=== PATIENT | female | born 2000 | race Caucasian/White ===

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

== ENCOUNTER → 2023-11-11 | Emergency (ER) | payer OTHER ==
--- NOTE | 2023-11-11 22:47 | EDPHYS ---
Physician Documentation [facility] Name: Carol Gutierrez Age: 23 yrs Sex: Female : 2000 Arrival Date: 11/11/2023 Time: 22:19 Bed 12 Private MD: ED Physician Bubba Morrison HPI: 11/12 00:34 This 23 yrs old Female presents to ER via Ambulatory with complaints of Foot Pain. sb4 00:34 patient states that she sprained her ankle a few weeks ago. states the pain has sb4 improved but yesterday she noticed a bump on the bottom of her foot that causes her pain if she is on her feet for an extended period of time. denies any redness, firmness, swelling, fevers, discharge. Historical: - Allergies: 11/11 22:37 Advil; rv - PMHx: 22:37 ADD/ADHD; GERD; rv - PSHx: 22:37 None; rv - Immunization history:: Adult Immunizations up to date. - Social history:: Smoking status: Patient denies any tobacco usage or history of. ROS: 11/12 00:34 Constitutional: Negative for fever, chills, and weight loss, sb4 MS/extremity: Positive for pain, of the left foot, All other systems are negative, Exam: 00:34 Constitutional: This is a well developed, well nourished patient who is awake, alert, sb4 and in no acute distress. Head/Face: Normocephalic, atraumatic. Eyes: Extra-ocular motions intact. Periorbital areas with no swelling, redness, or edema. ENT: Mucous membranes moist. Skin: Warm, dry with normal turgor. Normal color with no rashes, no lesions, and no evidence of cellulitis. MS/ Extremity: Pulses equal, no cyanosis. Neurovascular intact. Full, normal range of motion. Neuro: Awake and alert, GCS 15, oriented to person, place, time, and situation. Motor strength 5/5 in all extremities. Sensory grossly intact. Vital Signs: 11/11 22:36 BP 127 / 87; Pulse 79; Resp 17; Temp 98; Pulse Ox 99% ; Weight 102.06 kg; Height 5 ft. rv 0 in. ; 22:36 Body Mass Index 43.94 (102.06 kg, 152.4 cm) rv MDM: 22:39 Patient medically screened. sb4 11/12 00:34 Data reviewed: vital signs, nurses notes, and as a result, I will discharge patient. sb4 Test considered but Not performed: X-ray: not indicated, no shantanu injury. Counseling: I had a detailed discussion with the patient and/or guardian regarding the historical points, exam findings, and any diagnostic results supporting the discharge/admit diagnosis, to return to the emergency department if symptoms worsen or persist or if there are any questions or concerns that arise at home. ED course: i do not appreciate any "bump" or swelling on my examination. full ROM, no crepitus, no signs of abscess or cellulitis. Administered Medications: No medications were administered Disposition: 00:48 Co-signature as Attending Physician, Bubba Morrison MD I reviewed the patient's care rt provided by the Advanced Practice Provider and agree with the diagnosis and treatment plan. Disposition Summary: 11/11/23 22:46 Discharge Ordered Notes: Location: Home sb4 Problem: an ongoing problem sb4 Symptoms: are unchanged sb4 Condition: Stable sb4 Diagnosis - Pain in left foot sb4 Followup: sb4 - With: Private Physician - When: As needed - Reason: Recheck today's complaints, Re-evaluation by your physician Discharge Instructions: - Discharge Summary Sheet sb4 - Foot Pain sb4 Forms: - Thank You Letter sb4 - Patient Portal Instructions sb4 - Leadership Thank You Letter sb4 Signatures: Jhon Corrales, CHANDAN RN Jennifer Helm PA-C PAJhonatanC sb4 Bubba Morrison MD MD rt Corrections: (The following items were deleted from the chart) 11/11 22:38 22:37 Allergies: No Known Allergies; rv rv
--- NOTE | 2023-11-11 22:47 | ER ---
Nurse's Notes [facility] Name: Carol Gutierrez Age: 23 yrs Sex: Female : 2000 Arrival Date: 11/11/2023 Time: 22:19 Bed 12 Private MD: Diagnosis: Pain in left foot Presentation: 11/11 22:36 Chief complaint: Patient states: pt fell two weeks ago hurting the left foot, pain got rv better. today, woke up with a bump in the heel area and pain. Coronavirus screen: At this time, the client does not indicate any symptoms associated with coronavirus-19. Ebola Screen: No symptoms or risks identified at this time. Initial Sepsis Screen: Does the patient meet any 2 criteria? No. Patient's initial sepsis screen is negative. Does the patient have a suspected source of infection? No. Patient's initial sepsis screen is negative. Risk Assessment: Do you want to hurt yourself or someone else? Patient reports no desire to harm self or others. Onset of symptoms was November 11, 2023. 22:36 Method Of Arrival: Ambulatory rv 22:36 Acuity: SERINA 4 rv Triage Assessment: 22:37 General: Appears in no apparent distress. Behavior is calm, cooperative. Pain: rv Complains of pain in left foot. Neuro: Level of Consciousness is awake, alert, obeys commands, Oriented to person, place, time, situation. Cardiovascular: Capillary refill < 3 seconds Patient's skin is warm and dry. Respiratory: Airway is patent Respiratory effort is even, unlabored. GI: No signs and/or symptoms were reported involving the gastrointestinal system. : No signs and/or symptoms were reported regarding the genitourinary system. Derm: Skin is intact. Historical: - Allergies: 22:37 Advil; rv - PMHx: 22:37 ADD/ADHD; GERD; rv - PSHx: 22:37 None; rv - Immunization history:: Adult Immunizations up to date. - Social history:: Smoking status: Patient denies any tobacco usage or history of. Screenin:38 [facility] ED Fall Risk Assessment (Adult) History of falling in the last 3 months, rv including since admission No falls in past 3 months (0 pts) Score/Fall Risk Level 0 - 2 = Low Risk Oriented to surroundings, Maintained a safe environment, Educated pt \T\ family on fall prevention, incl call for assistance when getting out of bed, Assessed \T\ reinforced patient's understanding of fall precautions. Abuse screen: Denies threats or abuse. Denies injuries from another. Nutritional screening: No deficits noted. Tuberculosis screening: No symptoms or risk factors identified. Vital Signs: 22:36 BP 127 / 87; Pulse 79; Resp 17; Temp 98; Pulse Ox 99% ; Weight 102.06 kg; Height 5 ft. rv 0 in. ; 22:36 Body Mass Index 43.94 (102.06 kg, 152.4 cm) rv ED Course: 22:22 Patient arrived in ED. kj1 22:24 Jennifer Calvin PA-C is PHCP. sb4 22:24 Bubba Morrison MD is Attending Physician. sb4 22:37 Triage completed. rv 22:37 Arm band placed on right wrist. rv 22:38 Patient has correct armband on for positive identification. Client placed on continuous rv cardiac and pulse oximetry monitoring. NIBP monitoring applied. 22:49 Provided Education on: follow up. as6 22:49 No provider procedures requiring assistance completed. Patient did not have IV access as6 during this emergency room visit. Administered Medications: No medications were administered Medication: 22:38 VIS not applicable for this client. rv Outcome: 22:46 Discharge ordered by . sb4 22:49 Discharged to home ambulatory, as6 22:49 Condition: stable 22:49 Discharge instructions given to patient, Instructed on discharge instructions, follow up and referral plans. Demonstrated understanding of instructions, follow-up care, 22:50 Patient left the ED. as6 Signatures: Jhon Corrales RN RN rv Chiqui Mohr kj1 Erick Miguel RN RN as6 Jennifer Calvin PA-C PA-C sb4 Corrections: (The following items were deleted from the chart) 22:38 22:37 Allergies: No Known Allergies; rv rv
[2023-11-11 23:31] VITALS: BP 127/87; TEMP 98; O2SAT 99
== END ==
LOC: ER 22:19
DX: M79.672 Pain in left foot (principal); Z88.6 Allergy status to analgesic agent
CPT/HCPCS: 99283

== ENCOUNTER 2024-07-07 23:19 | Emergency (ER) | payer OTHER, SELFPAY ==
[2024-07-08] MEDS ORDERED: DIPHENHYDRAMINE 50 MG/ML VIAL ONE (01:56)
[2024-07-08] MEDS ORDERED: KETOROLAC 30 MG/ML INJ ONE (01:56)
[2024-07-08] MEDS ORDERED: METOCLOPRAMIDE 10 MG/2mL INJ ONE (01:56)
[2024-07-08 02:16] LABS: Absolute Lymphocytes (CBC) 1.4 K/uL (0.7-4.9); Absolute Monocytes 0.5 K/uL (0.1-1.3); Absolute Neutrophil 7.4 K/uL (1.8-8.0); Basophils % 0.5 % (0-1.3); Eosinophils % 0.1 % (0-4.4); Hematocrit 43.6 % (36.0-45.0); Hemoglobin 14.5 g/dL (12.0-15.0); Lymphocytes % 14.6 % (15.3-44.8); MCH 29.5 pg (27.0-35.0); MCHC 33.3 g/dL (32.0-36.0); MCV 88.5 fL (80-100); MPV 8.3 fL (7.6-11.3); Monocytes % 5.5 % (3.3-12.3); Neutrophils % 79.3 % (41.7-73.7); Platelets 313 thou/uL (152-406); RBC Red Blood Cell Count 4.93 M/uL (3.86-4.86)
[2024-07-08 02:18] LABS: PT Prothrombin Time 11.6 SECONDS (9.4-12.5); Protime INR 1.04
[2024-07-08 02:32] LABS: ALT/SGPT 18 U/L (13-56); AST/SGOT 16 U/L (15-37); Albumin 3.8 g/dL (3.4-5.0); Albumin/Globulin Ratio 1.1 (1.1-1.8); Alkaline Phosphatase 79 U/L (45-117); BUN Blood Urea Nitrogen 12 mg/dL (7-18); Bicarbonate 26 mEq/L (21-32); Bilirubin Total 0.3 mg/dL (0.2-1.0); Globulin 3.6 g/dL (2.3-3.5); Glomerular Filtration Rate 122 ml/min (=/>90); Glucose Level 94 mg/dL (74-106); Protein, Total 7.4 g/dL (6.4-8.2); Sodium Level 139 mEq/L (136-145)
[2024-07-08 02:37] LABS: Bilirubin Direct < 0.2 mg/dL (0-0.2); Bilirubin Indirect, Calculated 0.1 mg/dL (0.2-0.8)
--- NOTE | 2024-07-08 03:07 | RAD REPORT ---
CLINICAL HISTORY: Headache, nose bleed. COMPARISON: None. TECHNIQUE: CT HEAD WITHOUT IV CONTRAST on 07/08/2024 1:37 AM CDT This exam was performed according to our departmental dose-optimization program, which includes autom ated exposure control, adjustment of the mA and/or kV according to patient size and/or use of iterative reconstruction technique. FINDINGS: There is no acute hemorrhage, mass effect or midline shift. Lyman-white differentiation is preserved. There is no hydrocephalus. There is no significant volume loss for age. The calvarium is intact. Orbits and globes are unremarkable. The paranasal sinuses are clear. Mastoid air cells are clear. IMPRESSION: No acute intracranial findings. Electronically signed by: Jerad Galindo MD 07/08/2024 03:00 AM CDT RP Due to temporary technical issues with the PACS/Vir2[employer] reporting system, reports are being ladi d by the in-house radiologist without review as a courtesy to ensure prompt reporting the interpreting radiologist is fully responsible for the content of the report. Transcribed Date/Time: 07/08/2024 9:52 PM
--- NOTE | 2024-07-08 03:57 | ER ---
Nurse's Notes [facility] Name: Carol Gutierrez Age: 24 yrs Sex: Female : 2000 Arrival Date: 07/07/2024 Time: 23:19 Bed 16 Private MD: Diagnosis: Epistaxis;Migraine without aura, not intractable Presentation: 07/07 23:42 Chief complaint: Patient states: last night around midnight nose started bleeding. It tm6 bled for about 4 hours. Since then, it has been on and off bleeding. I feel really weak. Coronavirus screen: Client denies travel out of the [place] in the last 14 days. Ebola Screen: Patient negative for fever greater than or equal to 101.5 degrees Fahrenheit, and additional compatible Ebola Virus Disease symptoms Patient denies exposure to infectious person. Patient denies travel to an Ebola-affected area in the 21 days before illness onset. No symptoms or risks identified at this time. Initial Sepsis Screen: Does the patient meet any 2 criteria? No. Patient's initial sepsis screen is negative. Does the patient have a suspected source of infection? No. Patient's initial sepsis screen is negative. Risk Assessment: Do you want to hurt yourself or someone else? Patient reports no desire to harm self or others. Onset of symptoms was July 06, 2024 at 00:00. 23:42 Method Of Arrival: Ambulatory tm6 23:42 Acuity: SERINA 3 tm6 Triage Assessment: 23:43 General: Appears in no apparent distress. Behavior is calm, cooperative. Pain: Denies tm6 pain. EENT: Reports nasal discharge that is bloody since midnight yesterday. Neuro: Level of Consciousness is awake, alert, obeys commands, Oriented to person, place, time, situation. Cardiovascular: Patient's skin is warm and dry. Respiratory: Airway is patent Respiratory effort is even, unlabored, Respiratory pattern is regular, symmetrical. GI: No signs and/or symptoms were reported involving the gastrointestinal system. Abdomen is round. : No signs and/or symptoms were reported regarding the genitourinary system. Derm: No signs and/or symptoms reported regarding the dermatologic system. Musculoskeletal: Reports general weakness. 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 - Infectious Disease History:: Denies. - Social history:: Smoking status: Patient denies any tobacco usage or history of. Patient/guardian denies using alcohol. - Family history:: not pertinent. Screenin/12 00:34 [facility] ED Fall Risk Assessment (Adult) History of falling in the last 3 months, cp4 including since admission No falls in past 3 months (0 pts) Confusion or Disorientation No (0 pts) Intoxicated or Sedated No (0 pts) Impaired Gait No (0 pts) Mobility Assist Device Used No (0 pt) Altered Elimination No (0 pt) Score/Fall Risk Level 0 - 2 = Low Risk Oriented to surroundings, Maintained a safe environment, Assessed \T\ reinforced patient's understanding of fall precautions, Hourly rounding (assess needs \T\ fall precautionary measures) done. Abuse screen: Denies threats or abuse. Nutritional screening: No deficits noted. Tuberculosis screening: No symptoms or risk factors identified. Assessment: 00:34 General: Appears in no apparent distress. comfortable, Behavior is calm, cooperative, cp4 appropriate for age. Pain: Denies pain. Neuro: Level of Consciousness is awake, alert, obeys commands, Oriented to person, place, time, situation. Cardiovascular: Patient's skin is warm and dry. Respiratory: Airway is patent Respiratory effort is even, unlabored. GI: No signs and/or symptoms were reported involving the gastrointestinal system. : No signs and/or symptoms were reported regarding the genitourinary system. EENT: Reports nose bleed. Currently not bleeding.. Derm: No signs and/or symptoms reported regarding the dermatologic system. Musculoskeletal: No signs and/or symptoms reported regarding the musculoskeletal system. 01:30 Reassessment: Patient appears in no apparent distress at this time. Patient and/or cp4 family updated on plan of care and expected duration. Pain level reassessed. Patient is alert, oriented x 3, equal unlabored respirations, skin warm/dry/pink. 02:30 Reassessment: Patient appears in no apparent distress at this time. Patient and/or cp4 family updated on plan of care and expected duration. Pain level reassessed. Patient is alert, oriented x 3, equal unlabored respirations, skin warm/dry/pink. 03:30 Reassessment: Patient appears in no apparent distress at this time. Patient and/or cp4 family updated on plan of care and expected duration. Pain level reassessed. Patient is alert, oriented x 3, equal unlabored respirations, skin warm/dry/pink. Vital Signs: 07/07 23:41 BP 123 / 90; Pulse 95; Resp 18; Temp 98.8(TE); Pulse Ox 100% on R/A; MAP 100 mmHg; tm6 Weight 102.06 kg; Height 5 ft. 0 in. ; Pain 0/10; 07/08 01:00 BP 134 / 68; Pulse 99; Resp 18; Pulse Ox 100% ; cp4 02:00 BP 111 / 59; Pulse 101; Resp 18; Pulse Ox 100% ; cp4 04:03 BP 124 / 64; Pulse 96; Resp 18; Pulse Ox 100% ; cp4 07/07 23:41 Body Mass Index 43.94 (102.06 kg, 152.4 cm) tm6 07/07 23:41 Pain Scale: Adult tm6 [place] Coma Score: 06:58 Eye Response: spontaneous(4). Motor Response: obeys commands(6). Verbal Response: sp4 oriented(5). Total: 15. ED Course: 07/07 23:20 Patient arrived in ED. jj6 23:38 Alexi Guerra MD is Attending Physician. sp4 23:43 Triage completed. tm6 23:43 Arm band placed on right wrist. tm6 07/08 00:30 Colleen Puri is Primary Nurse. cp4 00:34 Bed in low position. Call light in reach. Side rails up X 1. Provided Education on: cp4 nose bleed. 00:34 No provider procedures requiring assistance completed. cp4 02:01 Initial lab(s) drawn, by me, sent to lab. Inserted saline lock: 22 gauge in left cp4 antecubital area, using aseptic technique. Blood collected. Flushed with 10 mL NS. 02:33 CT Head Brain wo Cont In Process Unspecified. EDMS 02:33 CT Facial Bones W/O Con In Process Unspecified. EDMS 04:04 intact, bleeding controlled, No redness/swelling at site. Pressure dressing applied. cp4 Administered Medications: 02:00 Drug: metoCLOPramide IVP 10 mg IVP once; over 1 to 2 minutes Route: IVP; Site: left cp4 antecubital; 02:36 Follow up: Response: No adverse reaction cp4 02:00 Drug: diphenhydrAMINE IVP 25 mg IVP once Route: IVP; Site: left antecubital; cp4 02:36 Follow up: Response: No adverse reaction cp4 02:36 Drug: Ketorolac IVP 30 mg IVP once Route: IVP; Site: left antecubital; cp4 03:00 Follow up: Response: No adverse reaction; Pain is decreased cp4 Medication: 00:34 VIS not applicable for this client. cp4 Outcome: 03:56 Discharge ordered by . sp4 04:04 Discharged to home ambulatory, cp4 04:04 Condition: stable 04:04 Discharge instructions given to patient, Instructed on discharge instructions, follow up and referral plans. Demonstrated understanding of instructions, follow-up care, 04:05 Patient left the ED. cp4 Signatures: Dispatcher [employer] EDBarbie [email or web address] Alexi Guerra MD MD sp4 Colleen Puri cp4 Misael Toney RN RN tm6
--- NOTE | 2024-07-08 03:57 | EDPHYS ---
Physician Documentation [facility] Name: Carol Gutierrez Age: 24 yrs Sex: Female : 2000 Arrival Date: 07/07/2024 Time: 23:19 Bed 16 Private MD: ED Physician Alexi Guerra HPI: 07/07 23:38 This 24 yrs old Female presents to ER via Unassigned with complaints of Nose sp4 Bleed. 07/08 06:58 24-year-old female presents with complaint of the left-sided epistaxis. . 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 - Infectious Disease History:: Denies. - Social history:: Smoking status: Patient denies any tobacco usage or history of. Patient/guardian denies using alcohol. - Family history:: not pertinent. ROS: 07/08 06:58 Constitutional: Negative for fever, chills, and weight loss, positive left-sided sp4 epistaxis and a headache All other systems are negative, Exam: 06:58 Constitutional: This is a well developed, well nourished patient who is awake, alert, sp4 and in no acute distress. Head/Face: Normocephalic, atraumatic. Eyes: Pupils equal round and reactive to light, extra-ocular motions intact. Lids and lashes normal. Conjunctiva and sclera are not injected. Cornea within normal limits. Periorbital areas with no swelling, redness, or edema. ENT: Nares patent. No nasal discharge, no septal abnormalities noted. Tympanic membranes are normal and external auditory canals are clear. Oropharynx with no redness, swelling, or masses, exudates, or evidence of obstruction, uvula midline. Mucous membranes moist. Neck: Trachea midline, no thyromegaly or masses palpated, and no cervical lymphadenopathy. Supple, full range of motion without nuchal rigidity, or vertebral point tenderness. Chest/axilla: Normal chest wall appearance and motion. Nontender with no deformity. No lesions are appreciated. Cardiovascular: Regular rate and rhythm with a normal S1 and S2. No gallops, murmurs, or rubs. Normal PMI, no JVD. No pulse deficits. Respiratory: Lungs have equal breath sounds bilaterally, clear to auscultation and percussion. No rales, rhonchi or wheezes noted. No increased work of breathing, no retractions or nasal flaring. Abdomen/GI: Soft, with normal bowel sounds. No distension or tympany. No guarding or rebound. No evidence of tenderness throughout. Back: No spinal tenderness. No costovertebral tenderness. Skin: Warm, dry with normal turgor. Normal color with no rashes, no lesions, and no evidence of cellulitis. MS/ Extremity: Pulses equal, no cyanosis. Neurovascular intact. Full, normal range of motion. Neuro: Awake and alert, GCS 15, oriented to person, place, time, and situation. Cranial nerves II-XII grossly intact. Motor strength 5/5 in all extremities. Sensory grossly intact. Psych: Awake, alert, with orientation to person, place and time. Behavior, mood, and affect are within normal limits Vital Signs: 07/07 23:41 BP 123 / 90; Pulse 95; Resp 18; Temp 98.8(TE); Pulse Ox 100% on R/A; MAP 100 mmHg; tm6 Weight 102.06 kg; Height 5 ft. 0 in. ; Pain 0/10; 07/08 01:00 BP 134 / 68; Pulse 99; Resp 18; Pulse Ox 100% ; cp4 02:00 BP 111 / 59; Pulse 101; Resp 18; Pulse Ox 100% ; cp4 04:03 BP 124 / 64; Pulse 96; Resp 18; Pulse Ox 100% ; cp4 07/07 23:41 Body Mass Index 43.94 (102.06 kg, 152.4 cm) tm6 07/07 23:41 Pain Scale: Adult tm6 Joseph Coma Score: 06:58 Eye Response: spontaneous(4). Motor Response: obeys commands(6). Verbal Response: sp4 oriented(5). Total: 15. MDM: 07/07 23:48 Patient medically screened. sp4 07/08 03:48 ED course: CLINICAL HISTORY: Headache, nose bleed. COMPARISON: None. TECHNIQUE: CT HEAD sp4 WITHOUT IV CONTRAST on 07/08/2024 1:37 AM CDT This exam was performed according to our departmental dose-optimization program, which includes automated exposure control, adjustment of the mA and/or kV according to patient size and/or use of iterative reconstruction technique. FINDINGS: There is no acute hemorrhage, mass effect or midline shift. Lyman-white differentiation is preserved. There is no hydrocephalus. There is no significant volume loss for age. The calvarium is intact. Orbits and globes are unremarkable. The paranasal sinuses are clear. Mastoid air cells are clear. IMPRESSION: No acute intracranial findings. . ED course: CLINICAL HISTORY: Nose bleeding. COMPARISON: None. TECHNIQUE: CT MAXILLOFACIAL WITHOUT IV CONTRAST on 07/08/2024 1:38 AM CDT This exam was performed according to our departmental dose-optimization program, which includes automated exposure control, adjustment of the mA and/or kV according to patient size and/or use of iterative reconstruction technique. FINDINGS: There is no acute fracture. The paranasal sinuses are clear. Orbits and globes are unremarkable. Mastoid air cells are clear. Temporomandibular joints are intact. There are no significant soft tissue abnormalities. IMPRESSION: No post-traumatic findings. . 06:59 Differential diagnosis: nasal fracture, trauma, sinusitis, epistaxis r/t trauma, sp4 spontaneous epistaxis. Data reviewed: vital signs, nurses notes, old medical records, lab test result(s), radiologic studies, CT scan. Consideration of Admission/Observation Escalation of care including admission/observation considered. ED course: Patient remains without epistaxis. Stable for discharge home. 07/08 01:36 Order name: Test, Serum; Complete Time: 02:57 4 07/08 01:36 Order name: Basic Metabolic Panel; Complete Time: 02:57 sp4 07/08 01:36 Order name: CBC with Diff; Complete Time: 02:57 sp4 07/08 01:36 Order name: LFT's; Complete Time: 02:57 sp4 07/08 01:36 Order name: PT-INR; Complete Time: 02:57 sp4 07/08 01:37 Order name: CT Head Brain wo Cont 4 07/08 01:38 Order name: CT Facial Bones W/O Con sp4 07/08 01:36 Order name: IV Saline Lock; Complete Time: 02:24 sp4 07/08 01:36 Order name: Labs collected and sent; Complete Time: 02:24 sp4 Administered Medications: 02:00 Drug: metoCLOPramide IVP 10 mg IVP once; over 1 to 2 minutes Route: IVP; Site: left cp4 antecubital; 02:36 Follow up: Response: No adverse reaction cp4 02:00 Drug: diphenhydrAMINE IVP 25 mg IVP once Route: IVP; Site: left antecubital; cp4 02:36 Follow up: Response: No adverse reaction cp4 02:36 Drug: Ketorolac IVP 30 mg IVP once Route: IVP; Site: left antecubital; cp4 03:00 Follow up: Response: No adverse reaction; Pain is decreased cp4 Disposition Summary: 07/08/24 03:56 Discharge Ordered Notes: Location: Home sp4 Problem: new sp4 Symptoms: have improved sp4 Condition: Stable sp4 Diagnosis - Epistaxis sp4 - Migraine without aura, not intractable sp4 Followup: sp4 - With: Private Physician - When: 7 - 10 days - Reason: Recheck today's complaints Discharge Instructions: - Discharge Summary Sheet sp4 - Nosebleed, Adult, [id number] sp4 Forms: - Work release form sp4 - Patient Portal Instructions sp4 Signatures: Dispatcher [employer] Alexi Muniz MD MD sp4 Colleen Puri 4 Misael Toney RN RN tm6 Corrections: (The following items were deleted from the chart) 01:36 01:36 TEST, SERUM+SC.LAB.BRZ ordered. EDMS EDMS 01:36 01:36 BASIC METABOLIC PANEL+C.LAB.BRZ ordered. EDMS EDMS 01:36 01:36 CBC+H.LAB.BRZ ordered. EDMS EDMS 01:36 01:36 HEPATIC FUNCTION+C.LAB.BRZ ordered. EDMS EDMS 01:36 01:36 PROTIME (+INR)+COAG.LAB.BRZ ordered. EDMS EDMS
--- NOTE | 2024-07-08 06:38 | RAD REPORT ---
CLINICAL HISTORY: Nose bleeding. COMPARISON: None. TECHNIQUE: CT MAXILLOFACIAL WITHOUT IV CONTRAST on 07/08/2024 1:38 AM CDT This exam was performed according to our departmental dose-optimization program, which includes autom ated exposure control, adjustment of the mA and/or kV according to patient size and/or use of iterative reconstruction technique. FINDINGS: There is no acute fracture. The paranasal sinuses are clear. Orbits and globes are unremarkable. Mast oid air cells are clear. Temporomandibular joints are intact. There are no significant soft tissue abnormalities. IMPRESSION: No post-traumatic findings. Electronically signed by: Jerad Galindo MD 07/08/2024 03:07 AM CDT RP Due to temporary technical issues with the PACS/[employer] reporting system, reports are being ladi d by the in-house radiologist without review as a courtesy to ensure prompt reporting the interpreting radiologist is fully responsible for the content of the report. Transcribed Date/Time: 07/08/2024 9:52 PM
[2024-07-08 09:20] VITALS: O2SAT 100
[2024-07-08 09:21] VITALS: TEMP 98.8
[2024-07-08 09:25] VITALS: BP 124/64
== END 2024-07-08 04:05 | disposition home or self-care (01) ==
LOC: ER 23:19
DX: R04.0 Epistaxis (principal); G43.009 Migraine without aura, not intractable, without status migrainosus
CPT/HCPCS: 36415; 70450; 70486; 76377; 80048; 80076; 84703; 85025; 85610; 96374; 96375; 99284; J1200; J2765

== ENCOUNTER 2025-02-15 10:46 | Emergency (ER) | payer SELFPAY ==
[2025-02-15] MEDS ORDERED: HYDROCODONE/APAP 10/325 TAB ONE (11:22)
--- NOTE | 2025-02-15 12:26 | EDPHYS ---
Physician Documentation [facility] Name: Carol Gutierrez Age: 24 yrs Sex: Female : 2000 Arrival Date: 02/15/2025 Time: 10:46 Bed 14 Private MD: ED Physician Hamlet Schultz HPI: 02/15 12:21 This 24 yrs old Female presents to ER via Ambulatory with complaints of Foot florencia Pain - and swelling. 12:21 The patient presents with decreased range of motion, pain, that is acute. The florencia complaints affect the left foot. Context: Mechanism of Injury: Inversion the patient can partially bear weight. Onset: The symptoms/episode began/occurred 5 day(s) ago. Modifying factors: The symptoms are alleviated by elevation of extremity, the symptoms are aggravated by movement, wearing shoes. Associated signs and symptoms: The patient has no apparent associated signs or symptoms. Severity of symptoms: At their worst the symptoms were moderate, in the emergency department the symptoms are unchanged. The patient has not experienced similar symptoms in the past. 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 Flu vaccine is not up to date. - Infectious Disease History:: Denies. - Social history:: Smoking status: Patient denies any tobacco usage or history of. - Family history:: not pertinent. ROS: 12:21 Constitutional: Negative for fever, chills, and weight loss, Eyes: Negative for injury, florencia pain, redness, and discharge, ENT: Negative for injury, pain, and discharge, Neck: Negative for injury, pain, and swelling, Cardiovascular: Negative for chest pain, palpitations, and edema, Respiratory: Negative for shortness of breath, cough, wheezing, and pleuritic chest pain, Abdomen/GI: Negative for abdominal pain, nausea, vomiting, diarrhea, and constipation, Back: Negative for injury and pain, : Negative for injury, bleeding, discharge, and swelling, Skin: Negative for injury, rash, and discoloration, Neuro: Negative for headache, weakness, numbness, tingling, and seizure, Psych: Negative for depression, anxiety, suicide ideation, homicidal ideation, and hallucinations, Allergy/Immunology: Negative for hives, rash, and allergies, Endocrine: Negative for neck swelling, polydipsia, polyuria, polyphagia, and marked weight changes, Hematologic/Lymphatic: Negative for swollen nodes, abnormal bleeding, and unusual bruising, 12:21 MS/extremity: Positive for pain, swelling, tenderness, of the left foot and left lateral ankle, Exam: 12:21 Constitutional: This is a well developed, well nourished patient who is awake, alert, florencia and in no acute distress. Head/Face: Normocephalic, atraumatic. Eyes: Pupils equal round and reactive to light, extra-ocular motions intact. Lids and lashes normal. Conjunctiva and sclera are non-icteric and not injected. Cornea within normal limits. Periorbital areas with no swelling, redness, or edema. ENT: Nares patent. No nasal discharge, no septal abnormalities noted. Tympanic membranes are normal and external auditory canals are clear. Oropharynx with no redness, swelling, or masses, exudates, or evidence of obstruction, uvula midline. Mucous membranes moist. Neck: Trachea midline, no thyromegaly or masses palpated, and no cervical lymphadenopathy. Supple, full range of motion without nuchal rigidity, or vertebral point tenderness. No Meningismus. Chest/axilla: Normal chest wall appearance and motion. Nontender with no deformity. No lesions are appreciated. Cardiovascular: Regular rate and rhythm with a normal S1 and S2. No gallops, murmurs, or rubs. Normal PMI, no JVD. No pulse deficits. Respiratory: Lungs have equal breath sounds bilaterally, clear to auscultation and percussion. No rales, rhonchi or wheezes noted. No increased work of breathing, no retractions or nasal flaring. Abdomen/GI: Soft, non-tender, with normal bowel sounds. No distension or tympany. No guarding or rebound. No evidence of tenderness throughout. Back: No spinal tenderness. No costovertebral tenderness. Full range of motion. Skin: Warm, dry with normal turgor. Normal color with no rashes, no lesions, and no evidence of cellulitis. Neuro: Awake and alert, GCS 15, oriented to person, place, time, and situation. Cranial nerves II-XII grossly intact. Motor strength 5/5 in all extremities. Sensory grossly intact. Cerebellar exam normal. Normal gait. Psych: Awake, alert, with orientation to person, place and time. Behavior, mood, and affect are within normal limits. 12:21 Musculoskeletal/extremity: ROM: intact in all extremities, full active range of motion, full passive range of motion, Circulation is intact in all extremities. Compartment Syndrome exam of affected extremity: is normal. Weight bearing: is unable to bear weight, DVT Exam: negative Homans' sign noted on exam, no appreciated bluish discoloration, no erythema, no increased warmth, pain, swelling, tenderness, Vital Signs: 10:58 BP 104 / 63; Pulse 78; Resp 17; Temp 98.4(O); Pulse Ox 99% on R/A; Weight 102.06 kg; ap3 Height 5 ft. 0 in. ; Pain 5/10; 10:58 Body Mass Index 43.94 (102.06 kg, 152.4 cm) ap3 10:58 Pain Scale: Adult ap3 MDM: 10:50 Medical Screening Exam initiated florencia 12:24 Differential diagnosis: fracture, sprain, foreign body, penetrating trauma, arthritis, florencia gout, cellulitis. Data reviewed: vital signs, nurses notes, radiologic studies, plain films. Consideration of Admission/Observation Escalation of care including admission/observation considered. I considered the following discharge prescriptions or medication management in the emergency department Medications were administered in the Emergency Department. See MAR. Independent interpretation of the following test(s) in the Emergency Department X-Ray: My interpretation is NO FX. Care significantly affected by the following chronic conditions: Obesity, GERD, ADHD. 02/15 11:13 Order name: Foot Left 3 View XRAY [facility] 02/15 11:13 Order name: Ankle Left 3 View XRAY [facility] 02/15 12:09 Order name: Walking boot; Complete Time: 12:28 florencia Administered Medications: 11:28 Drug: [place] PO 10 mg-325 mg 1 tabs PO once {Note: RASS 0, pain 5/10.} Route: PO; ll1 Disposition Summary: 02/15/25 12:26 Discharge Ordered Notes: Location: Home florencia Problem: new florencia Symptoms: have improved florencia Condition: Stable florencia Diagnosis - Sprain of foot florencia - Sprain of tarsal ligament of left foot florencia - Sprain of ankle florencia Followup: florencia - With: Private Physician - When: 2 - 3 days - Reason: Recheck today's complaints, Continuance of care, Re-evaluation by your physician Followup: florencia - With: Johnny Velazquez MD - When: 2 - 3 days - Reason: Recheck today's complaints, Re-evaluation by your physician Discharge Instructions: - Discharge Summary Sheet florencia - Ankle Sprain florencia - Foot Sprain florencia - Ankle Sprain, [id number] [facility] Forms: - Medication Reconciliation Form florencia - Antibiotic Education florencia - Prescription Opioid Use florencia - Patient Portal Instructions florencia - Leadership Thank You Letter florencia - Work release form jb4 Prescriptions: - Tylenol-Codeine #3 300mg-30mg Oral tablet - take 2 tablets ORAL route every 6 hours As needed; 16 tablet; Refills: 0, florencia Product Selection Permitted Signatures: Dispatcher [employer] EDMS Hamlet Schultz MD MD cha Prokisch, Amanda, RN RN ap3 Jessica Echavarria RN RN ll1 Corrections: (The following items were deleted from the chart) 11:13 11:13 Foot Left 3 View+RAD.RAD.BRZ ordered. EDMS EDMS 11:13 11:13 Ankle Left 3 View+RAD.RAD.BRZ ordered. EDMS EDMS 11:13 11:13 Test, Urine+UC.LAB.BRZ ordered. EDMS EDMS
--- NOTE | 2025-02-15 12:26 | ER ---
Nurse's Notes [facility] Name: Carol Gutierrez Age: 24 yrs Sex: Female : 2000 Arrival Date: 02/15/2025 Time: 10:46 Bed 14 Private MD: Diagnosis: Sprain of foot;Sprain of tarsal ligament of left foot;Sprain of ankle Presentation: 02/15 10:58 Chief complaint: Patient states: she started having left foot pain that started a week ap3 ago. patient denies any trauma or falls. patient currently rates her pain as a 5/10 on the pain scale. Coronavirus screen: At this time, the client does not indicate any symptoms associated with coronavirus-19. Ebola Screen: No symptoms or risks identified at this time. Initial Sepsis Screen: Does the patient meet any 2 criteria? No. Patient's initial sepsis screen is negative. Does the patient have a suspected source of infection? No. Patient's initial sepsis screen is negative. Risk Assessment: Do you want to hurt yourself or someone else? Patient reports no desire to harm self or others. Onset of symptoms was February 08, 2025. 10:58 Method Of Arrival: Ambulatory ap3 10:58 Acuity: SERINA 4 ap3 Triage Assessment: 11:00 General: Appears in no apparent distress. Behavior is calm, cooperative, appropriate ap3 for age. Pain: Complains of pain in left foot Pain currently is 5 out of 10 on a pain scale. Neuro: Level of Consciousness is awake, alert, obeys commands, Oriented to person, place, time, situation, Appropriate for age. Cardiovascular: Patient's skin is warm and dry. Respiratory: Airway is patent Respiratory effort is even, unlabored, Respiratory pattern is regular, symmetrical. [employer]: 11:00 LMP 02/14/2025, unknown ap3 Historical: - Allergies: 10:59 Advil; ap3 - PMHx: 10:59 GERD; ADD/ADHD; ap3 - Immunization history:: Client reports having NOT received the Covid vaccine. Flu vaccine is not up to date. - Infectious Disease History:: Denies. - Social history:: Smoking status: Patient denies any tobacco usage or history of. - Family history:: not pertinent. Screenin:00 Abuse screen: Denies threats or abuse. Nutritional screening: No deficits noted. ap3 Tuberculosis screening: No symptoms or risk factors identified. 12:38 [facility] ED Fall Risk Assessment (Adult) History of falling in the last 3 months, ap3 including since admission No falls in past 3 months (0 pts) Confusion or Disorientation No (0 pts) Intoxicated or Sedated No (0 pts) Impaired Gait No (0 pts) Mobility Assist Device Used No (0 pt) Altered Elimination No (0 pt) Score/Fall Risk Level 0 - 2 = Low Risk Oriented to surroundings, Maintained a safe environment, Educated pt \T\ family on fall prevention, incl call for assistance when getting out of bed, Assessed \T\ reinforced patient's understanding of fall precautions, Hourly rounding (assess needs \T\ fall precautionary measures) done, Used ambulatory aids as needed (educated on \T\ assisted with). Assessment: 11:25 General: Appears in no apparent distress. Behavior is calm, cooperative, appropriate ll1 for age. Pain: Complains of pain in left foot Pain radiates to left leg Pain currently is 5 out of 10 on a pain scale. Quality of pain is described as aching, Pain began 1 week ago. Musculoskeletal: Circulation, motion, and sensation intact. Capillary refill < 3 seconds, in left toes. Reports pain in left foot. 11:29 Reassessment: No changes from previously documented assessment. Patient and/or family ll1 updated on plan of care and expected duration. Pain level reassessed. Patient is alert, oriented x 3, equal unlabored respirations, skin warm/dry/pink. Vital Signs: 10:58 BP 104 / 63; Pulse 78; Resp 17; Temp 98.4(O); Pulse Ox 99% on R/A; Weight 102.06 kg; ap3 Height 5 ft. 0 in. ; Pain 5/10; 10:58 Body Mass Index 43.94 (102.06 kg, 152.4 cm) ap3 10:58 Pain Scale: Adult ap3 ED Course: 10:49 Patient arrived in ED. al6 10:50 Hamlet Schultz MD is Attending Physician. florencia 10:55 Jessica Echavarria, CHANDAN is Primary Nurse. ll1 10:55 Arm band placed on Patient placed in an exam room, on a stretcher. ll1 10:59 Triage completed. ap3 12:25 Johnny Velazquez MD is Referral Physician. [facility] 12:35 Foot Left 3 View XRAY In Process Unspecified. EDMS 12:35 Ankle Left 3 View XRAY In Process Unspecified. EDMS 12:38 Patient has correct armband on for positive identification. Provided Education on: ap3 discharge instructions . 12:38 No provider procedures requiring assistance completed. Patient did not have IV access ap3 during this emergency room visit. Administered Medications: 11:28 Drug: [place] PO 10 mg-325 mg 1 tabs PO once {Note: RASS 0, pain 5/10.} Route: PO; ll1 Medication: 12:39 VIS not applicable for this client. ap3 Outcome: 12:26 Discharge ordered by MD. [facility] 12:38 Discharged to home ambulatory, with family, with friend, ap3 12:38 Condition: good 12:38 Discharge instructions given to patient, family, Instructed on discharge instructions, follow up and referral plans. medication usage, Demonstrated understanding of instructions, follow-up care, medications, Prescriptions given X 1, 12:39 Patient left the ED. ap3 Signatures: Dispatcher [employer] EDMS Hamlet Schultz MD MD cha Prokisch, Amanda RN RN ap3 Jessica Echavarria RN RN ll1 Lyndsay Smith
[2025-02-15 12:44] VITALS: BP 104/63; TEMP 98.4; O2SAT 99
--- NOTE | 2025-02-15 14:37 | RAD REPORT ---
EXAMINATION: XR LEFT FOOT CLINICAL INDICATION: PAIN TECHNIQUE: Multiple projections of the left foot were obtained. COMPARISON: No prior exam. FINDINGS: Moderate soft tissue swelling is seen along the dorsum of the mid and forefoot. Tiny calcan eal spurs. No acute fracture or dislocation.
--- NOTE | 2025-02-15 14:39 | RAD REPORT ---
EXAMINATION: XR LEFT ANKLE CLINICAL INDICATION: Female, 24 years old. PAIN TECHNIQUE: 3 view radiograph of the left ankle were obtained. COMPARISON: No prior exam. FINDINGS: Moderate soft tissue swelling is seen about the ankle. Tiny posterior calcaneal spur. No ac tammi fracture or dislocation.
== END 2025-02-15 12:39 | disposition home or self-care (01) ==
LOC: ER 10:46
DX: S93.612A Sprain of tarsal ligament of left foot, initial encounter (principal); S93.402A Sprain of unspecified ligament of left ankle, initial encounter
CPT/HCPCS: 99283

== ENCOUNTER 2025-05-20 17:39 | Emergency (ER) | payer SELFPAY ==
[2025-05-20] MEDS ORDERED: KETOROLAC 30 MG/ML INJ ONE (18:11)
[2025-05-20] MEDS ORDERED: ACETAMINOPHEN 500 MG TAB ONE (18:11)
[2025-05-20 18:42] LABS: Urine Culture Reflex Order NOT NEEDED; Urine Microscopic Reflex YN ORDER UMIC
--- NOTE | 2025-05-20 19:39 | RAD REPORT ---
EXAMINATION: Lumbar Spine 3 Views CLINICAL INDICATION: Back pain FINDINGS: No fracture or dislocation seen. Minimal scoliosis.
--- NOTE | 2025-05-20 19:41 | ER ---
Nurse's Notes [facility] Name: Carol Gutierrez Age: 25 yrs Sex: Female : 2000 Arrival Date: 05/20/2025 Time: 17:39 Bed 17 Private MD: Diagnosis: Low back pain;UTI/ Urinary tract infection, site not specified Presentation: 05/20 18:02 Chief complaint: Patient states: lower back pain/spasms, started yesterday evening. ph Coronavirus screen: At this time, the client does not indicate any symptoms associated with coronavirus-19. Ebola Screen: No symptoms or risks identified at this time. Initial Sepsis Screen: Does the patient meet any 2 criteria? No. Patient's initial sepsis screen is negative. Does the patient have a suspected source of infection? No. Patient's initial sepsis screen is negative. Risk Assessment: Do you want to hurt yourself or someone else? Patient reports no desire to harm self or others. Onset of symptoms was May 19, 2025. 18:02 Method Of Arrival: Ambulatory ph 18:02 Acuity: SERINA 4 ph Triage Assessment: 18:04 General: Appears in no apparent distress. comfortable, well groomed, Behavior is calm, ph cooperative, appropriate for age. Pain: Complains of pain in lumbar area Pain currently is 9 out of 10 on a pain scale. Aggravated by repositioning, weight bearing. Pain: Quality of pain is described as sharp, Pain began 1 day ago. EENT: No signs and/or symptoms were reported regarding the EENT system. Neuro: Level of Consciousness is awake, alert, obeys commands, Oriented to person, place, time, situation, Appropriate for age. Cardiovascular: Patient's skin is warm and dry. Respiratory: Airway is patent Respiratory effort is even, unlabored, Respiratory pattern is regular, symmetrical. GI: No signs and/or symptoms were reported involving the gastrointestinal system. : No signs and/or symptoms were reported regarding the genitourinary system. Derm: Skin is intact, Skin is pink, warm \T\ dry. Musculoskeletal: Circulation, motion, and sensation intact. Range of motion: intact in all extremities. 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 - Infectious Disease History:: Denies. - Social history:: Smoking status: Patient denies any tobacco usage or history of. Screenin:08 [facility] ED Fall Risk Assessment (Adult) History of falling in the last 3 months, ph including since admission No falls in past 3 months (0 pts) Confusion or Disorientation No (0 pts) Intoxicated or Sedated No (0 pts) Impaired Gait No (0 pts) Mobility Assist Device Used No (0 pt) Altered Elimination No (0 pt) Score/Fall Risk Level 0 - 2 = Low Risk Oriented to surroundings, Maintained a safe environment, Educated pt \T\ family on fall prevention, incl call for assistance when getting out of bed. Abuse screen: Denies threats or abuse. Denies injuries from another. Nutritional screening: No deficits noted. Tuberculosis screening: No symptoms or risk factors identified. 19:17 [facility] ED Fall Risk Assessment (Adult) History of falling in the last 3 months, tb4 including since admission No falls in past 3 months (0 pts) Confusion or Disorientation No (0 pts) Intoxicated or Sedated No (0 pts) Impaired Gait No (0 pts) Mobility Assist Device Used No (0 pt) Altered Elimination No (0 pt) Score/Fall Risk Level 0 - 2 = Low Risk Oriented to surroundings, Maintained a safe environment. Abuse screen: Denies threats or abuse. Denies injuries from another. Nutritional screening: No deficits noted. Tuberculosis screening: No symptoms or risk factors identified. Assessment: 18:07 General: see triage assessment . ph 19:12 Reassessment: Patient is alert, oriented x 3, equal unlabored respirations, skin tb4 warm/dry/pink. Patient states symptoms have improved. General: Appears in no apparent distress. Behavior is calm, cooperative. Pain: Complains of pain in lumbar area, left low back and right low back. Neuro: Level of Consciousness is awake, alert, obeys commands, Oriented to person, place, time, situation, Moves all extremities. Full function Gait is steady, Speech is slurred, Facial symmetry appears normal. Respiratory: Airway is patent Respiratory effort is even, unlabored, Respiratory pattern is regular, symmetrical. GI: : No signs and/or symptoms were reported regarding the genitourinary system. EENT: Derm: Skin is intact, is healthy with good turgor, Skin is moist, Skin is normal, Skin temperature is warm. Musculoskeletal: Circulation, motion, and sensation intact. Range of motion: intact in all extremities. Vital Signs: 18:02 BP 131 / 89; Pulse 96; Resp 18; Temp 97.9; Pulse Ox 99% on R/A; Weight 102.06 kg; ph Height 5 ft. 0 in. ; Pain 9/10; 19:17 BP 129 / 77; Pulse 88; Resp 18; Temp 97.5(O); Pain 4/10; tb4 20:11 BP 123 / 67; Pulse 99; Resp 20; Pulse Ox 100% on R/A; Pain 4/10; tb4 18:02 Body Mass Index 43.94 (102.06 kg, 152.4 cm) ph 18:02 Pain Scale: Adult ph 19:17 Pain Scale: Adult tb4 20:11 Pain Scale: Adult tb4 ED Course: 17:42 Patient arrived in ED. ts1 17:45 [facility]C [facility] dr5 17:45 Maximino Flores MD is Attending Physician. dr5 18:02 Margie Meade, CHANDAN is Primary Nurse. ph 18:04 Triage completed. ph 18:07 Arm band placed on. ph 18:08 Patient has correct armband on for positive identification. Bed in low position. ph Provided Education on: call light use. 18:08 No provider procedures requiring assistance completed. ph 19:17 Patient has correct armband on for positive identification. Bed in low position. Call tb4 light in reach. Client placed on continuous cardiac and pulse oximetry monitoring. NIBP monitoring applied. Pulse ox on. Door closed. 19:23 Lumbar Spine (3 Views) XRAY In Process Unspecified. EDMS 20:10 Urine collected: clean catch specimen, clear, X-ray(s) taken. tb4 20:11 Patient did not have IV access during this emergency room visit. tb4 Administered Medications: 18:18 Drug: Ketorolac IM 30 mg IM once Route: IM; Site: left deltoid; ph 20:10 Follow up: Response: No adverse reaction tb4 20:10 Follow up: Response: Pain is decreased tb4 18:18 Drug: Acetaminophen PO 1000 mg PO once Route: PO; ph 20:10 Follow up: Response: No adverse reaction; Pain is decreased tb4 Medication: 18:09 VIS not applicable for this client. ph Outcome: 19:41 Discharge ordered by . dr5 20:11 Discharged to home ambulatory, tb4 20:11 Condition: stable 20:11 Discharge instructions given to patient, Instructed on discharge instructions, follow up and referral plans. Demonstrated understanding of instructions, follow-up care, medications, Prescriptions given X 4, 20:12 Patient left the ED. tb4 Signatures: Dispatcher [employer] EDMargie Vee, RN RN Mechelle Yuusf, MARI PAS ts1 Magno Duque, [employer] SUPERVISOR-C [employer] SUPERVISOR-Cdr5 Angeles Calvin, CHANDAN RN tb4
--- NOTE | 2025-05-20 19:41 | EDPHYS ---
Physician Documentation [facility] Name: Carol Gutierrez Age: 25 yrs Sex: Female : 2000 Arrival Date: 05/20/2025 Time: 17:39 Bed 17 Private MD: ED Physician Maximino Flores HPI: 05/20 18:25 This 25 yrs old Female presents to ER via Ambulatory with complaints of Back dr5 Pain. 18:25 The patient presents with pain that is acute. The patient presents with pain that is dr5 acute, with no known mechanism of injury. The symptoms are located in the lumbar area. Onset: The symptoms/episode began/occurred last night. Patient is a 25-year-old female with history of ADD, GERD coming in for midline lumbar back pain that started yesterday evening. Patient reports that the pain started after driving home. Patient denies heavy lifting, pulling, pushing, or trauma/falls. Patient reports that she has not taken thing prior to arrival because she did not know what she could take. Patient denies chest pain, abdominal pain, nausea, vomiting, diarrhea, dysuria, vaginal bleeding, vaginal discharge, or fever.. 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 - Infectious Disease History:: Denies. - Social history:: Smoking status: Patient denies any tobacco usage or history of. ROS: 18:25 Constitutional: as per hpi dr5 Exam: 20:09 Constitutional: This is a well developed, well nourished patient who is awake, alert, dr5 and in no acute distress. Head/Face: Normocephalic, atraumatic. Eyes: Pupils equal round and reactive to light, extra-ocular motions intact. Lids and lashes normal. Conjunctiva and sclera are non-icteric and not injected. Cornea within normal limits. Periorbital areas with no swelling, redness, or edema. Neck: Trachea midline, no thyromegaly or masses palpated, and no cervical lymphadenopathy. Supple, full range of motion without nuchal rigidity, or vertebral point tenderness. No Meningismus. Chest/axilla: Normal chest wall appearance and motion. Nontender with no deformity. No lesions are appreciated. Cardiovascular: Regular rate and rhythm with a normal S1 and S2. Normal PMI, no JVD. No pulse deficits. Respiratory: Lungs have equal breath sounds bilaterally, clear to auscultation. No rales, rhonchi or wheezes noted. No increased work of breathing, no retractions or nasal flaring. Back: No spinal tenderness. No costovertebral tenderness. Full range of motion. Skin: Warm, dry with normal turgor. Normal color with no rashes, no lesions, and no evidence of cellulitis. MS/ Extremity: Pulses equal, no cyanosis. Neurovascular intact. Full, normal range of motion. Neuro: Awake and alert, GCS 15, oriented to person, place, time, and situation. Cranial nerves II-XII grossly intact. Motor strength 5/5 in all extremities. Sensory grossly intact. Cerebellar exam normal. Normal gait. Vital Signs: 18:02 BP 131 / 89; Pulse 96; Resp 18; Temp 97.9; Pulse Ox 99% on R/A; Weight 102.06 kg; ph Height 5 ft. 0 in. ; Pain 9/10; 19:17 BP 129 / 77; Pulse 88; Resp 18; Temp 97.5(O); Pain 4/10; tb4 20:11 BP 123 / 67; Pulse 99; Resp 20; Pulse Ox 100% on R/A; Pain 4/10; tb4 18:02 Body Mass Index 43.94 (102.06 kg, 152.4 cm) ph 18:02 Pain Scale: Adult ph 19:17 Pain Scale: Adult tb4 20:11 Pain Scale: Adult tb4 MDM: 17:46 Medical Screening Exam initiated dr5 20:09 Differential diagnosis: Fracture Osteoarthritis sprain, vertebral fracture, UTI, dr5 . Data reviewed: vital signs, nurses notes, lab test result(s), urinalysis, UPT: negative radiologic studies, plain films. Consideration of Admission/Observation Escalation of care including admission/observation considered. Escalation considered patient found to have vertebral fracture. I considered the following discharge prescriptions or medication management in the emergency department I discussed and recommended Over The Counter medications, Medications were administered in the Emergency Department. See MAR. Independent interpretation of the following test(s) in the Emergency Department X-Ray: My interpretation is Independent interpretation of x-ray does not reveal fracture.. Care significantly affected by the following chronic conditions: GERD, ADD. Care significantly affected by the following Social Determinants of Health: Poor access to healthcare and/or lack of insurance, Poor access to transportation, Problems related to employment. Counseling: I had a detailed discussion with the patient and/or guardian regarding the historical points, exam findings, and any diagnostic results supporting the discharge/admit diagnosis, the presence of at least one elevated blood pressure reading (>120/80) during this emergency department visit, lab results, radiology results, the need for outpatient follow up, for definitive care, a family practitioner, to return to the emergency department if symptoms worsen or persist or if there are any questions or concerns that arise at home. Medication response: Toradol markedly relieved the patient's pain. Special discussion: I discussed with the patient/guardian in detail that at this point there is no indication for admission to the hospital. It is understood, however, that if the symptoms persist or worsen the patient needs to return immediately for re-evaluation. Based on the history and exam findings, there is no indication for further emergent testing or inpatient evaluation. I discussed with the patient/guardian the need to see the primary care provider for further evaluation of the symptoms. ED course: Patient found to have urinary tract infection on exam. Recommended patient start taking antibiotics twice a day for the next week. Gave patient muscle laxer and steroid Dosepak to help with inflammation and pain. Patient is agreeable plan. All questions answered. Strict ER precautions given. Recommended patient find a primary care doctor and follow-up with them.. 05/20 18:01 Order name: UA Rfx Ajay Cult if indicated; Complete Time: 18:43 dr5 05/20 18:01 Order name: Test, Urine; Complete Time: 18:42 dr5 05/20 18:01 Order name: Lumbar Spine (3 Views) XRAY; Complete Time: 19:41 dr5 Administered Medications: 18:18 Drug: Ketorolac IM 30 mg IM once Route: IM; Site: left deltoid; ph 20:10 Follow up: Response: No adverse reaction tb4 20:10 Follow up: Response: Pain is decreased tb4 18:18 Drug: Acetaminophen PO 1000 mg PO once Route: PO; ph 20:10 Follow up: Response: No adverse reaction; Pain is decreased tb4 Disposition Summary: 05/20/25 19:41 Discharge Ordered Notes: Location: Home dr5 Condition: Stable dr5 Diagnosis - Low back pain dr5 - UTI/ Urinary tract infection, site not specified dr5 Followup: dr5 - With: Emergency Department - When: As needed - Reason: Worsening of condition Followup: dr5 - With: Private Physician - When: 1 - 2 days - Reason: Recheck today's complaints, Continuance of care, Re-evaluation by your physician Discharge Instructions: - Discharge Summary Sheet dr5 - Acute Back Pain, Adult dr5 Forms: - Work release form vc1 - Medication Reconciliation Form dr5 - Antibiotic Education dr5 - Patient Portal Instructions dr5 - Leadership Thank You Letter dr5 Prescriptions: - Cephalexin 500 mg Oral Capsule - take 1 capsule ORAL route every 12 hours for 10 days; 20 capsule; Refills: 0, dr5 Product Selection Permitted - Ibuprofen 800 mg Oral Tablet - take 1 tablet ORAL route every 12 hours As needed take with food; 20 tablet; dr5 Refills: 0, Product Selection Permitted - Cyclobenzaprine 10 mg Oral Tablet - take 1 tablet ORAL route every 8 hours As needed; 30 tablet; Refills: 0, dr5 Product Selection Permitted - Medrol (Ayo) 4 mg Oral Tablets, Dose Pack - take 1 tablet ORAL route as directed - follow package instructions; 1 packet; dr5 Refills: 0, Product Selection Permitted Addendum: 05/22/2025 07:04 Co-signature as Attending Physician, Maximino Flores MD I reviewed the patient's care r n provided by the Advanced Practice Provider and agree with the diagnosis and treatment plan. Signatures: Dispatcher [employer] Maximino Medina MD MD rn Hall, Patricia, RN RN ph Rhodes, Dustin, MAINTENANCE TECHNICIAN 2ND SHIFT-C MAINTENANCE TECHNICIAN 2ND SHIFT-Cdr5 Angeles Calvin RN tb4 Corrections: (The following items were deleted from the chart) 05/20 18:01 18:01 UA Rfx Ajay Cult if indicated+U.LAB.BRZ ordered. EDMS EDMS 18:01 18:01 Test, Urine+UC.LAB.BRZ ordered. EDMS EDMS 18:02 18:02 Lumbar Spine 3 Views+RAD.RAD.BRZ ordered. EDMS EDMS
[2025-05-20 20:34] VITALS: TEMP 97.5
[2025-05-20 20:35] VITALS: BP 123/67; O2SAT 100
== END 2025-05-20 20:12 | disposition home or self-care (01) ==
LOC: ER 17:39
DX: N39.0 Urinary tract infection, site not specified (principal)
CPT/HCPCS: 72100; 81001; 81025; 96372; 99284